=== PATIENT | female | born 1960 | race Caucasian/White ===

== ENCOUNTER 2016-09-04 09:17 | Inpatient (IN) ==
[2016-09-04] MEDS ORDERED: *HR* Promethazine 25 MG/ML VIAL IVP PRN ×2 (10:39→17:14)
[2016-09-04] MEDS ORDERED: *HR* Metoprolol 5 MG/5 ML VIAL IVP PRN (10:39)
[2016-09-04] MEDS ORDERED: Naloxone 0.4 MG/ML INJ IVP PRN (10:39)
[2016-09-04] MEDS ORDERED: Ondansetron 4 MG/2 ML VIAL IVP PRN (10:39)
[2016-09-04] MEDS ORDERED: 0.9 % Sodium Chloride 1,000 ML IVC SCH ×2 (10:45→22:03)
[2016-09-04] MEDS ORDERED: *HR* LORazepam 2 MG/ML VIAL IVP PRN (10:45)
[2016-09-04] MEDS ORDERED: Pantoprazole 40 MG VIAL IVP SCH (10:45)
[2016-09-04 11:05] LABS: Hematocrit 39.3 % (35.3-44.9); Hemoglobin 12.9 g/dL (11.5-15.4); Mean Corpuscular HGB Conc 32.8 g/dL (31.6-35.5); Mean Corpuscular Hemoglobin 30.7 pg (28.0-33.3); Mean Corpuscular Volume 93.6 fL (83.0-100.0); Platelet Count 201 K/mcL (140-400); Red Cell Distribution Width 12.6 % (11.5-14.5); Segmented Neutrophils % 54.9 %
[2016-09-04 11:06] LABS: Basophils % 0.4 %; Eosinophils # 0.2 K/mcL (0.0-0.6); Eosinophils % 3.5 %; Immature Granulocytes % 0.4 % (0-4); Lymphocytes # 1.5 K/mcL (0.6-4.6); Lymphocytes % 31.7 %; Monocytes # 0.4 K/mcL (0.0-1.3); Monocytes % 9.1 %; Neutrophils # 2.5 K/mcL (1.6-8.9)
[2016-09-04 11:11] LABS: Prothrombin Time 11.3 Seconds (9.4-12.1)
[2016-09-04 11:16] LABS: BUN/Creatinine Ratio 10 (6-26); Blood Urea Nitrogen 10 mg/dL (7-20); Calcium 8.8 mg/dL (8.6-10.8); Carbon Dioxide 27 mEq/L (19-29); Chloride 106 mEq/L (98-109); Glucose 95 mg/dL (70-99); Magnesium 1.9 mg/dL (1.6-2.6); Osmolality,Calculated 293 (280-300); Phosphorous 2.2 mg/dL (2.3-4.7); Potassium 3.5 mEq/L (3.5-4.5); Sodium 142 mEq/L (136-145); eGFR For African Americans > 60 (> 60); eGFR For Non-African Americans 59 (> 60)
[2016-09-04] MEDS ORDERED: *HR* Propofol 200 MG/20 ML VIAL IVP ONE (13:47)
[2016-09-04] MEDS ORDERED: *HR* Midazolam HCl 2 MG/2 ML VIAL ONE (13:47)
[2016-09-04] MEDS ORDERED: *HR* FentaNYL (PF) 100 MCG/2 ML VIAL ONE ×3 (13:47→19:17)
[2016-09-04] MEDS ORDERED: Lidocaine -MPF 4% 5 ML AMPUL ONE (13:47)
[2016-09-04] MEDS ORDERED: *HR* Succinylcholine 200 MG/10 ML VIAL IVP ONE (13:47)
[2016-09-04] MEDS ORDERED: Lidocaine -MPF 2% 2 ML VIAL ONE (13:47)
[2016-09-04] MEDS ORDERED: *HR* Rocuronium Bromide 50 MG/5 ML VIAL ONE ×2 (13:47→17:54)
--- NOTE | 2016-09-04 14:25 | Anesthesia Evaluation PreOp ---
Date of Encounter: 09/04/16 Time of Encounter: 14:23 - Past History Planned Operation: Colorectal Anastamosis Revision Cardiac History: HTN, Hyperlipidemia Other Medical History: Thyroid (Hypothyroid), Other (Colon CA, Breast CA) Anesthesia History: Past Anesthesia (Bowel Resection, Colostomy with reversal, C6-7 Fusion, B. CTR, GB,Colonoscopy), Problems (PONV) : No Alcohol Use: none Drug use: none Medications and Allergies Gabapentin [Neurontin] 800 mg PO TID #90 tablet 04/18/16 [Rx] Levothyroxine [Synthroid] 50 mcg PO DAILY 07/23/16 [History] Acetaminophen [Non-Aspirin] 500 mg PO BID 08/29/16 [History] Aspirin [Lo-Dose Aspirin EC] 81 mg PO DAILY 08/29/16 [History] Tamoxifen [Nolvadex] 10 mg PO DAILY 08/29/16 [History] Turmeric Root Extract [Turmeric] 500 mg PO BID 08/29/16 [History] Calcium Carbonate/Vitamin D3 [Calcium 500 + D Tablet] 1 tab PO BID 09/04/16 [ History] Allergies latex Adverse Reaction (Verified 08/29/16 08:12) See Comments Tested Negative - Meds/Allergy Pre-op Review Medications Reviewed: Yes Allergies Reviewed: Yes Beta Blockers on Current Med List: Yes Anesthesia Results - Labs 09/04/16 10:58 09/04/16 10:58 - Imaging EKG: image reviewed ( [facility] [place]) Anesthesia Exam O2 Sat Height 1.68 m Weight 135.7 kg O2 Sat by Pulse Oximetry 98 Vital Signs Temp Pulse Resp BP Pulse Ox 98.0 F 66 18 134/92 98 09/04/16 11:29 09/04/16 11:29 09/04/16 11:29 09/04/16 11:29 09/04/16 11:29 Vital Signs/O2 Sat, Most Current Temp Pulse Resp BP Pulse Ox 98.0 F 66 18 134/92 98 09/04/16 11:29 09/04/16 11:29 09/04/16 11:29 09/04/16 11:29 09/04/16 11:29 Height: 5'6'' Weight: 299# NPO (# of Hours): > 8 hrs Pain Scale: 0 Pain Scale Used: Numeric (1 - 10) - HEENT Pupil (Motor): Pupils equal, EOMI Mallampati: III Teeth: Normal Oral Opening: Greater than 3 - MARINE ELECTRICIAN APPRENTICE LOC: Oriented MARINE ELECTRICIAN APPRENTICE Motor: Normal RUE, Normal LUE, Normal RLE, Normal LLE, Normal Face MARINE ELECTRICIAN APPRENTICE Sensory: Normal: RUE, LUE, RLE, LLE, Face - Cardiac Rhythm: Regular Murmur: None JVD: No Carotid Bruit: No - Pulmonary Breath Sounds: bilateral Clear Respiratory Effort: Symmetrical Anesthesia Assess/Plan ASA Score: 3 Modified Lynden Scale for Level of Consciousness: Cooperative, oriented, and tranquil Anesthetic Plan: General Autologous Blood: Yes Monitoring Plan: Standard Monitors Recovery Plan: PACU
[2016-09-04] MEDS ORDERED: Lacri-Lube 3.5 GM TUBE ONE (15:33)
[2016-09-04] MEDS ORDERED: Lidocaine -MPF 1% 5 ML AMPUL INFILT ONE (15:35)
[2016-09-04] MEDS ORDERED: CefOXitin 2,000 MG VIAL IVPB ONE (15:37)
[2016-09-04] MEDS ORDERED: *HR* HYDROmorphone (PF) 1 MG/ML SYRINGE IVP PRN (17:14)
[2016-09-04] MEDS ORDERED: Ondansetron 4 MG/2 ML VIAL IVP ONE (17:14)
[2016-09-04] MEDS ORDERED: *HR* Labetalol 100 MG/20 ML MDV IVP PRN (17:14)
[2016-09-04] MEDS ORDERED: Ringers Solution, Lactated 1,000 ML IVC SCH (17:15)
[2016-09-04] MEDS ORDERED: Dexamethasone 4 MG/ML VIAL ONE (17:16)
[2016-09-04] MEDS ORDERED: *HR* Metoprolol 5 MG/5 ML VIAL IVP ONE (17:18)
[2016-09-04] MEDS ORDERED: CefOXitin 1,000 MG VIAL ONE (19:07)
[2016-09-04] MEDS ORDERED: *HR* HYDROmorphone 2 MG/ML SYRINGE ONE (20:18)
[2016-09-04] MEDS ORDERED: Neostigmine Methylsulfate 3 MG/3 ML SYRINGE ONE ×2 (20:51→21:02)
--- NOTE | 2016-09-04 22:15 | Operative Note ---
Date of procedure: 09/04/16 Pre-op diagnosis: colorectal anastomotic stricture, ventral incisional hernia x2 Post-op diagnosis: same (and bilateral hydrosalpinx, adhesions) Procedure: Lysis of adhesions for over 2 hrs, small bowel resection, bilateral salpingectomy, resection colorectal anastomosis with creation new colorectal anastomatosis and diverting loop ileostomy, primary repair ventral incisional hernias x 2, rigid sigmoidoscopy specimens: left/right fallopian tubes, proximal rectal stump/Left colon, anastomotic rings, small bowel Complications: none immediate Anesthesia: BLACKA Surgeon: Bela Saha Furnace Caretaker: Lisa Crawford Estimated blood loss (cc): 150 IV fluids (cc): 4,000 Urine output (cc): 400 Specimen: see op note Condition: stable Disposition: PACU Procedure in Detail: specimens: anastomotic stricture (left colon/proximal rectum), anastomotic rings , small bowel, left/right fallopian tubes Patient was brought into the operating suite and placed supine on the operating table. Sign in was performed and everyone was in agreement. Anesthesia was induced and patient was endotracheally intubated by anesthesia without incident. A ngt was placed by anesthesia and a muñoz placed by the circulating nurse. The patient was placed in lithotomy position in yellow fin stirrups. Her abdomen and perineum and buttocks were prepped and draped in the usual sterile fashion. Time out was performed and again everyone in agreement. A long midline incision was made excising her previous midline scar with a 15 blade and a bovie. Dissection through the subcutaneous tissue to the fascia was made with the bovie. Kocker's were placed on either side of the fascia for retraction and the abdomen entered with the bovie through one of the ventral incisional hernia sites. The fascia incision was elongated. A bookwalter was placed for retraction. Adhesions of the small bowel to the small bowel and to the abdominal wall were taken down sharply with Metzenbaum scissors. The colorectal anastomosis was located and was densely adherent to the left lateral abdominal wall and five loops of small bowel were pulled into and densely adherent to this area as well as adhesed to the dome of the uterus. Lysis of adhesions and take down of the small bowel loops from the strictured anastomosis took 2 hours. There was an enterotomy of one of the adhesed loops of small bowel which is not an uncexpected event given the difficulty encountered with the adhesions. The enterotomy was closed with a 2-0 silk running stitch. The proximal left colon from the rectum at the anastomosis/stricture and a noncrushing bowel clamp was placed across the proximal left colon and a stacey at the rectum. The abdomen was irrigated with sterile saline. The small bowel was run from the ligament of trietz to the terminal ileum, no other areas of small bowel injury were identified. A rigid sigmoidscopy was done to evaluate strictured area but due to liquid stool and length of rectum was unable to be visualized. The area of closed small bowel enterotomy was resected using two linear FLIP staplers with blue loads and the impact Ligasure to dissect the small bowel off the mesentary. The small bowel resected measured 23 cm in lenght. A side to side small bowel anastomosis was constructed with the linear FLIP stapler using a blue load to create the common channel and a TL 60 stapler to close the end. The end was reinforced with 3-0 silk Lembert stitches and a 3-0 crotch stitch was placed. The mesentary was closed with a 3-0 silk running stitch. The abdomen was irrigated with sterile saline. Patients bilateral fallopian tubes were very large and dilated, ovaries looked normal. The bilateral fallopian tubes were resected with the impact Ligasure. The proximal rectum was dissected free the bovie and green Contour stapler was used to transect the proximal rectum/strictured area. There was bleeding from the transected stump which was stopped with the bovie. The splenic flexure was previously taken down. Omentum was taken off the distal transverse colon with the bovie which allowed the left colon to reach into the pelvis, rectal stump. A disposable pursestring stapling device was applied to the distal left colon which was dilated. A 29 EEA stapler was chosen for the colorectal anastomosis and the anvil placed in the left colon and tied in place. 29 mm dilator was placed through the anus into the rectum. The EEA stapling device was placed in the rectum and the anastomosis constructed. Once the stapler was removed it was obvious there was a hole in the anastomosis at the right anterior area. This was closed with 3-0 silk full thickness interrupted stitches. Epiploica fat was buttressed around the anterior aspect of the anastomosis with 3-0 silk interrupted stitches. The pelvis was filled with sterile saline. A muñoz catheter with a saline filled 30cc balloon was placed in the anus. A noncrushing bowel clamp was placed across the left colon and 270cc air instilled in the rectum/distal colon, there was no evident leak. The abdomen was irrigated with sterile saline. A long pedicle of omentum was placed over thecolorectal anastomsis into the pelvis. A 10 mm GOVIND drain was placed in pelvis anterior to the anastomosis/omentum through an opening in the left lower quadrant abdominal wall and was secured to the skin with a 2-0 silk stitch. A site at the skin above the right upper abdomen lateral rectus muscle was chosen to create the diverting loop ileostomy where the small bowel, a little over a foot from the terminal ileum, appeared to reach well. A circular incision through the skin was made with a 15 blade and the skin and subcutaneous tissue dissected out with the bovie. A cruciate incision was made in the anterior rectus fascia and the rectus muscle fibers split in the direction of the fibers and an opening in the posterior rectus fascia was made with the bovie. The small bowel loop was pulled through the abdominal wall with a stacey. Due to patients obesity the small bowel did not have a lot of slack past the skin, ~ 3- 4 cm only. The small bowel mesentary was scored in three areas with the bovie trying to gain a little additional length. An opening beneath the small bowel with made with a bovie and a red rubber catheter placed below the small bowel. The red rubber catheter was trimmed and sutured to the skin with 2-0 stitches. Kockers were placed on either side of the fascia for retraction. The ngt was palpated to be in good position. Five pieces of seprafilm were placed in the abdomen. Lap and soft counts were correct. The hernia sacs were dissected and excised from the subcutaneous tissue at the previous two ventral incisional hernia sites, with the bovie. The midline fascia was closed with two seperate # 1 nonlooped PDS running stitches meeting in the middle. The subcutaneous tissue was copiously irrigated with sterile saline. The subcutaneous tissue was reapproximated with 3-0 vicryl interrupted stitches. The skin was closed with von. Attention was turned toward constructing the loop ileostomy. Approximately 2/3 of the anterior distal small bowel was opened transversely with the bovie. The small bowel was sutured to the subcutaneous tissue with full bowel thickness interrupted 3-0 vicryl stitches. The proximal small bowel was everted creating the ileostomy and was secured with 3-0 vicryl stitches. An ostomy appliance faceplate was trimmed to accomodate the ileostomy and red rubber catheter, and was applied. Sterile 4x4 gauze and medipore tape were placed as the midline incision dressing. A drain sponge was placed at the GOVIND drain site. An abdominal binder was applied. The patient tolerated the procedure well and all lap and instrument counts were correct at the end of the case. She was extubated in the OR by anesthesia without incident. The muñoz and ngt remained. She was taken to pacu in stable condition.
--- NOTE | 2016-09-04 23:53 | Anesthesia Evaluation Post Op ---
Date of Encounter: 09/04/16 Time of Encounter: 23:53 - Vital Signs Vital Signs: Last Vital Signs Temp 98.4 F 09/04/16 23:12 Pulse 113 09/04/16 23:32 Resp 16 09/04/16 23:32 BP 155/113 09/04/16 23:32 Pulse Ox 99 09/04/16 23:32 - Lungs Lungs: Clear Ascult./Percussion - Airway Airway: Non-obstructed - Cardiovascular Regular Rate - Mental Status Mental Status: Alert & Oriented, Answers Appropriately - Pain Pain Scale: 3 - Nausea Vomiting Nausea Vomiting: Not Present - Hydration Hydration: NPO, Moser catheter Notes: 09/04/16 23:53 on CPAP - Discharge PostOp Status: Transfer Patient to floor
[2016-09-05] MEDS ORDERED: Ringers Solution, Lactated 500 ML IVC ONE (02:29)
[2016-09-05] MEDS ORDERED: *HR* Promethazine 25 MG/ML VIAL IVP PRN (03:29)
[2016-09-05] MEDS ORDERED: *HR* Metoprolol 5 MG/5 ML VIAL IVP PRN (03:29)
[2016-09-05] MEDS ORDERED: *HR* LORazepam 2 MG/ML VIAL IVP PRN (03:29)
[2016-09-05] MEDS ORDERED: Naloxone 0.4 MG/ML INJ IVP PRN (03:29)
[2016-09-05] MEDS ORDERED: Ondansetron 4 MG/2 ML VIAL IVP PRN (03:29)
[2016-09-05] MEDS ORDERED: *HR* HYDROmorphone 20 MG/20 ML PCA IVC PRN (03:29)
[2016-09-05] MEDS: 0.9 % Sodium Chloride 1,000 ML IVC SCH ×4 (04:20→22:48)
[2016-09-05] MEDS: Piperacillin/Tazobactam 3.375 GM in D5% in Water (Mini-Bag+) 100 ML IVPB SCH ×3 (04:51→21:34)
[2016-09-05] MEDS: Pantoprazole 40 MG VIAL IVP SCH (06:14)
[2016-09-05] MEDS: Levothyroxine Sodium 100 MCG VIAL IVP SCH (06:14)
[2016-09-05 06:53] LABS: Hematocrit 42.1 % (35.3-44.9); Hemoglobin 13.6 g/dL (11.5-15.4); Lymphocytes # 0.6 K/mcL (0.6-4.6); Mean Corpuscular HGB Conc 32.3 g/dL (31.6-35.5); Mean Corpuscular Hemoglobin 31.4 pg (28.0-33.3); Mean Corpuscular Volume 97.2 fL (83.0-100.0); Mean Platelet Volume 10.6 fL (9.4-12.4); Platelet Count 174 K/mcL (140-400); Red Blood Count 4.33 M/mcL (3.82-4.97); Red Cell Distribution Width 13.1 % (11.5-14.5)
[2016-09-05 07:09] LABS: BUN/Creatinine Ratio 10 (6-26); Blood Urea Nitrogen 10 mg/dL (7-20); Calcium 7.7 mg/dL (8.6-10.8); Carbon Dioxide 26 mEq/L (19-29); Chloride 107 mEq/L (98-109); Glucose 157 mg/dL (70-99); Magnesium 1.4 mg/dL (1.6-2.6); Osmolality,Calculated 290 (280-300); Potassium 3.9 mEq/L (3.5-4.5); Sodium 139 mEq/L (136-145); eGFR For African Americans > 60 (> 60); eGFR For Non-African Americans 59 (> 60)
[2016-09-05 07:42] LABS: Monocytes # 0.2 K/mcL (0.0-1.3); Neutrophils # 9.4 K/mcL (1.6-8.9)
[2016-09-05 07:44] LABS: Platelet Estimate Normal (Normal)
[2016-09-05] MEDS ORDERED: Magnesium Sulfate 2 GM in D5% in Water 100 ML IVPB ONE (08:01)
[2016-09-05] MEDS ORDERED: 0.9 % Sodium Chloride 1,000 ML IVC ONE (08:12)
--- NOTE | 2016-09-05 10:44 | General Surgery Progress Note ---
Date of Encounter: 09/05/16 Time of Encounter: 12:40 - Assessment and Plan (1) Colonic stricture Current Visit: Yes Status: Acute POD #1 from a Lysis of adhesions for over 2 hrs, small bowel resection, bilateral salpingectomy, resection colorectal anastomosis with creation new colorectal anastomatosis and diverting loop ileostomy, primary repair ventral incisional hernias x [address] Saha NPO with NG tube to LIWS Await return of bowel function IV fluids- 130ml/hour, bolused 1 L NS Supportive care/pain control- Dilaudid BRIMMING MACHINE OPERATOR Muñoz catheter to SD for strict I&Os IS every 1 hour while awake PPI therapy daily Out of bed to chair today Repeat am labs (2) Essential hypertension Current Visit: No Status: Chronic Stable Continue metoprolol prn Will monitor and adjust as necessary (3) Hyperglycemia Current Visit: Yes Status: Acute Add low sliding scale insulin every 6 hours Will monitor and adjust as necessary (4) CKD (chronic kidney disease), stage II Current Visit: No Status: Chronic Stable IV fluids Muñoz cath to SD with strict I&Os Avoid nephrotoxic medications Repeat am labs (5) Morbid obesity with BMI of 45.0-49.9, adult Current Visit: Yes Status: Chronic (6) Hypomagnesemia Current Visit: Yes Status: Acute Replace Mg Repeat am labs (7) DVT prophylaxis Current Visit: No Status: Acute EPCDs to bilateral lower extremities Start heparin this evening Out of bed to chair today Subjective Patient reports: no flatus, no bowel movement, afebrile, other (Patient resting in bed comfortably with no complaints; lethargic) Narrative: denies pain, little nausea in the am none currently no flatus or bm no complaints Objective Vital Signs - Last 8 Hours Temp Pulse Resp BP Pulse Ox 09/05/16 08:02 97.7 F 116 18 130/89 98 09/05/16 03:15 98.5 F 118 22 134/89 Intake and Output 09/04/16 09/05/16 09/05/16 23:59 07:59 15:59 Intake Total 0 / 0 0 / 0 Output Total 375 / 375 315 / 315 Balance 0 / 0 -375 / -375 -315 / -315 Intake: Oral 0 / 0 0 / 0 Output: Catheter 235 / 235 65 / 65 Gastric Drainage 0 / 0 200 / 200 Wound Drainage 140 / 140 50 / 50 Left Upper Abdomen 140 / 140 50 / 50 Other: Meal Dinner NPO for breakfast Percent of Meal Consumed 0% Blood Glucose* 172 - General physical appearance well developed, no distress, obese - Eyes normal ocular movement - ENT normal mucosa, atraumatic, normocephalic - Neck Neck exam: trachea midline - Respiratory normal respiratory effort, clear to auscultation, other (diminished bibasilar bases) - Cardiovascular Cardiovascular exam: Present: tachycardia - Abdomen Abdomen: Present: soft, tender (expected post-operative tenderness), wound (GOVIND drain to bulb suction with serousang. drainage noted (190ml noted since surgery) ; NG tube to LIWS with bilious drainage noted (200ml since surgery); ileostomy pink and moist with serousang. drainage noted) - Incision Incision: Present: clean and dry, intact - Genitourinary other (muñoz catheter to SD with pro yellow urine noted (300ml since surgery) ) - Integumentary no rash, no growths - Neurologic CN 2-12 grossly intact - Psychiatric oriented to person, oriented to place, speech is normal - Labs 09/06/16 04:07 09/06/16 04:07 Diabetes panel 09/04/16 09/05/16 Range/Units 10:58 05:48 Sodium 142 139 (136-145) mEq/L Potassium 3.5 3.9 (3.5-4.5) mEq/L Chloride 106 107 (98-109) mEq/L Carbon Dioxide 27 26 (19-29) mEq/L BUN 10 10 (7-20) mg/dL Creatinine 0.98 0.98 (0.57-1.11) mg/dL Glucose 95 157 H (70-99) mg/dL Calcium 8.8 7.7 L (8.6-10.8) mg/dL Calcium panel 09/04/16 09/05/16 Range/Units 10:58 05:48 Calcium 8.8 7.7 L (8.6-10.8) mg/dL Phosphorus 2.2 L 4.0 D (2.3-4.7) mg/dL Pituitary panel 09/04/16 09/05/16 Range/Units 10:58 05:48 Sodium 142 139 (136-145) mEq/L Potassium 3.5 3.9 (3.5-4.5) mEq/L Chloride 106 107 (98-109) mEq/L Carbon Dioxide 27 26 (19-29) mEq/L BUN 10 10 (7-20) mg/dL Creatinine 0.98 0.98 (0.57-1.11) mg/dL Glucose 95 157 H (70-99) mg/dL Calcium 8.8 7.7 L (8.6-10.8) mg/dL Adrenal panel 09/04/16 09/05/16 Range/Units 10:58 05:48 Sodium 142 139 (136-145) mEq/L Potassium 3.5 3.9 (3.5-4.5) mEq/L Chloride 106 107 (98-109) mEq/L Carbon Dioxide 27 26 (19-29) mEq/L BUN 10 10 (7-20) mg/dL Creatinine 0.98 0.98 (0.57-1.11) mg/dL Glucose 95 157 H (70-99) mg/dL Calcium 8.8 7.7 L (8.6-10.8) mg/dL - VTE Documentation of Mechanical Device: Intermittent pneumatic compression device Consult Discharge Plan - Plan Referrals: Koby Hubbard DO [Primary Care Provider] - - Attending Attestation I examined this patient and my medical decision-making was reviewed with the CUSTOM SKI MAKER/PA/Advanced Practice Nurse/Resident Physician. I agree with the documented findings, disposition and treatment plan as described except to the extent set forth below. I examined this patient and my medical decision-making was reviewed with the CUSTOM SKI MAKER/PA/Advanced Practice Nurse/Resident Physician. I agree with the documented findings, disposition and treatment plan as described except to the extent set forth below.
[2016-09-05] MEDS ORDERED: *HR* Dextrose 50 % in Water (Syg) 50 ML SYRINGE IVP PRN (10:52)
[2016-09-05] MEDS ORDERED: D5% in Water 1,000 ML IVC PRN (10:52)
[2016-09-05] MEDS ORDERED: Dextrose Gel 15 GM PO PRN ×2 (10:52)
[2016-09-05] MEDS: Insulin LISPRO 300 UNITS/3 ML VIAL SQ SCH ×2 (15:24→21:09)
[2016-09-05] MEDS: *HR* Heparin 5,000 UNIT/ML VIAL SQ SCH (21:36)
[2016-09-06] MEDS: Insulin LISPRO 300 UNITS/3 ML VIAL SQ SCH ×4 (00:15→21:23)
[2016-09-06] MEDS: Piperacillin/Tazobactam 3.375 GM in D5% in Water (Mini-Bag+) 100 ML IVPB SCH ×3 (05:06→20:06)
[2016-09-06 05:16] LABS: Mean Corpuscular HGB Conc 31.6 g/dL (31.6-35.5); Mean Corpuscular Hemoglobin 31.8 pg (28.0-33.3); Mean Corpuscular Volume 100.8 fL (83.0-100.0); Mean Platelet Volume 10.5 fL (9.4-12.4); Platelet Count 144 K/mcL (140-400); Red Blood Count 3.77 M/mcL (3.82-4.97); Red Cell Distribution Width 13.5 % (11.5-14.5)
[2016-09-06 05:28] LABS: BUN/Creatinine Ratio 11 (6-26); Blood Urea Nitrogen 11 mg/dL (7-20); Calcium 7.4 mg/dL (8.6-10.8); Carbon Dioxide 26 mEq/L (19-29); Chloride 110 mEq/L (98-109); Glucose 121 mg/dL (70-99); Magnesium 1.5 mg/dL (1.6-2.6); Osmolality,Calculated 297 (280-300); Phosphorous 2.7 mg/dL (2.3-4.7); Potassium 4.2 mEq/L (3.5-4.5); Sodium 143 mEq/L (136-145); eGFR For African Americans > 60 (> 60); eGFR For Non-African Americans 57 (> 60)
[2016-09-06] MEDS: *HR* Heparin 5,000 UNIT/ML VIAL SQ SCH ×2 (05:39→17:28)
[2016-09-06] MEDS: Pantoprazole 40 MG VIAL IVP SCH (05:40)
[2016-09-06] MEDS: Levothyroxine Sodium 100 MCG VIAL IVP SCH (05:40)
[2016-09-06 06:19] LABS: Monocytes # 0.6 K/mcL (0.0-1.3); Neutrophils # 8.1 K/mcL (1.6-8.9)
[2016-09-06 06:20] LABS: Platelet Estimate Normal (Normal)
[2016-09-06] MEDS: 0.9 % Sodium Chloride 1,000 ML IVC SCH ×2 (07:09→17:28)
[2016-09-06] MEDS ORDERED: Magnesium Sulfate 2 GM in D5% in Water 100 ML IVPB ONE (10:13)
[2016-09-06] MEDS ORDERED: Acetaminophen IV 1,000 MG/100 ML INFUS..BTL IVPB ONE ×3 (10:15→19:45)
[2016-09-06] MEDS ORDERED: *HR* Morphine 2 MG/ML SYRINGE IVP PRN (10:20)
[2016-09-06] MEDS ORDERED: *HR* HYDROmorphone 20 MG/20 ML PCA IVC PRN (12:50)
--- NOTE | 2016-09-06 16:36 | General Surgery Progress Note ---
Date of Encounter: 09/06/16 Time of Encounter: 12:30 - Assessment and Plan (1) Colonic stricture Current Visit: Yes Status: Acute POD #2 from a Lysis of adhesions for over 2 hrs, small bowel resection, bilateral salpingectomy, resection colorectal anastomosis with creation new colorectal anastomatosis and diverting loop ileostomy, primary repair ventral incisional hernias x [address] 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 Gordon) Ofirmev every 6 hours Muñoz catheter to SD for strict I&Os IS every 1 hour while awake PPI therapy daily Out of bed to chair today Repeat am labs (2) Essential hypertension Current Visit: No Status: Chronic Stable Continue metoprolol prn Will monitor and adjust as necessary (3) Hyperglycemia Current Visit: Yes Status: Acute Improved Continue low sliding scale insulin every 6 hours Will monitor and adjust as necessary (4) CKD (chronic kidney disease), stage II Current Visit: No Status: Chronic Stable IV fluids- 110ml/hour Muñoz cath to SD with strict I&Os Avoid nephrotoxic medications Repeat am labs (5) Morbid obesity with BMI of 45.0-49.9, adult Current Visit: Yes Status: Chronic (6) Hypomagnesemia Current Visit: Yes Status: Acute Replace Mg per Dr. Saha Repeat am labs (7) DVT prophylaxis Current Visit: No Status: Acute EPCDs to bilateral lower extremities Heparin 5,000 units SQ twice daily for DVT prophylaxis Out of bed to chair today (8) Acute confusion Current Visit: Yes Status: Acute CT of head ordered per Dr. Gordon Subjective Patient reports: no new complaints, still having pain (surgical), no flatus, no bowel movement, afebrile, other (Patient is pleasantly confused. Awake and alert , oriented to person only. She does know that she is in a hospital but unable to say which hospital or what city she is in.) Objective Vital Signs - Last 8 Hours Temp Pulse Resp BP Pulse Ox 09/06/16 14:48 99.7 F H 94 18 121/80 97 09/06/16 11:58 98 09/06/16 10:50 98.2 F 96 20 141/82 98 09/06/16 09:45 97.5 F L 90 16 127/81 98 09/06/16 09:15 98.2 F 16 135/82 98 Intake and Output 09/06/16 09/06/16 09/06/16 07:59 15:59 23:59 Intake Total 1100 / 1100 304 / 304 Output Total 535 / 535 750 / 750 Balance 565 / 565 -446 / -446 Intake: IV Fluids 1100 / 1100 304 / 304 0.9 % Sodium Chloride 1, 1000 / 1000 000 ML @ 135 mls/hr IVC . [id number] [facility] Rx#:[id number] Ofirmev 1,000 mg In 100 100 / 100 ml @ 400 mls/hr IVPB ONCE ONE Rx#:[id number] Zosyn 3.375 GM In 100 / 100 100 / 100 Dextrose 5% (Minibag+) 100 ML 100 ML @ 25 mls/hr IVPB Q8H [facility] Rx#: [id number] Oral 0 / 0 0 / 0 Output: Stool 0 / 0 100 / 100 Catheter 480 / 480 450 / 450 Gastric Drainage 0 / 0 175 / 175 Right Nare 175 / 175 Wound Drainage 55 / 55 25 / 25 Left Upper Abdomen 55 / 55 25 / 25 Other: Meal NPO Blood Glucose* 121 117 - General physical appearance well developed, well nourished, no distress, obese - Eyes normal ocular movement - ENT dry mucosa, atraumatic, normocephalic - Neck Neck exam: trachea midline - Respiratory normal respiratory effort, clear to auscultation, other (Diminished bibasilar bases. IS- 500-1000ml) - Cardiovascular Cardiovascular exam: Present: RRR (HR improved) - Abdomen Abdomen: Present: soft, tender (Expected postoperative tenderness), wound (GOVIND drain to bulb suction with serousang. drainage noted (80ml since midnight); NG tube to LIWS with bilious drainage noted (175ml noted since midnight)) - Incision Incision: Present: clean and dry, intact - Genitourinary other (muñoz catheter to SD with clear, yellow urine noted (930ml noted since midnight)- improved) - Neurologic CN 2-12 grossly intact - Psychiatric oriented to person - Labs 09/06/16 04:07 09/06/16 04:07 Diabetes panel 09/06/16 Range/Units 04:07 Sodium 143 (136-145) mEq/L Potassium 4.2 (3.5-4.5) mEq/L Chloride 110 H (98-109) mEq/L Carbon Dioxide 26 (19-29) mEq/L BUN 11 (7-20) mg/dL Creatinine 1.01 (0.57-1.11) mg/dL Glucose 121 H (70-99) mg/dL Calcium 7.4 L (8.6-10.8) mg/dL Calcium panel 09/06/16 Range/Units 04:07 Calcium 7.4 L (8.6-10.8) mg/dL Phosphorus 2.7 (2.3-4.7) mg/dL Pituitary panel 09/06/16 Range/Units 04:07 Sodium 143 (136-145) mEq/L Potassium 4.2 (3.5-4.5) mEq/L Chloride 110 H (98-109) mEq/L Carbon Dioxide 26 (19-29) mEq/L BUN 11 (7-20) mg/dL Creatinine 1.01 (0.57-1.11) mg/dL Glucose 121 H (70-99) mg/dL Calcium 7.4 L (8.6-10.8) mg/dL Adrenal panel 09/06/16 Range/Units 04:07 Sodium 143 (136-145) mEq/L Potassium 4.2 (3.5-4.5) mEq/L Chloride 110 H (98-109) mEq/L Carbon Dioxide 26 (19-29) mEq/L BUN 11 (7-20) mg/dL Creatinine 1.01 (0.57-1.11) mg/dL Glucose 121 H (70-99) mg/dL Calcium 7.4 L (8.6-10.8) mg/dL - Imaging Additional Studies: Head CT 09/06/16 13:30 IMPRESSION: No acute intracranial abnormality. D/ / Gianna Pardo MD / Gianna Pardo MD Interpreting Provider: Gianna Pardo MD - VTE Documentation of Mechanical Device: Intermittent pneumatic compression device Consult Discharge Plan - Plan Referrals: Koby Hubbard DO [Primary Care Provider] - - Attending Attestation I examined this patient and my medical decision-making was reviewed with the GAS WELDING MACHINE OPERATOR/PA/Advanced Practice Nurse/Resident Physician. I agree with the documented findings, disposition and treatment plan as described except to the extent set forth below.
[2016-09-07] MEDS: 0.9 % Sodium Chloride 1,000 ML IVC SCH ×3 (01:18→21:05)
[2016-09-07] MEDS: Insulin LISPRO 300 UNITS/3 ML VIAL SQ SCH ×4 (01:21→18:34)
[2016-09-07] MEDS: Piperacillin/Tazobactam 3.375 GM in D5% in Water (Mini-Bag+) 100 ML IVPB SCH ×3 (04:30→21:04)
[2016-09-07] MEDS: Pantoprazole 40 MG VIAL IVP SCH (05:42)
[2016-09-07] MEDS: *HR* Heparin 5,000 UNIT/ML VIAL SQ SCH ×2 (05:42→17:18)
[2016-09-07] MEDS: Levothyroxine Sodium 100 MCG VIAL IVP SCH (05:42)
[2016-09-07 06:44] LABS: Basophils % 0.3 %; Eosinophils # 0.1 K/mcL (0.0-0.6); Eosinophils % 1.4 %; Hematocrit 30.4 % (35.3-44.9); Immature Granulocytes % 0.6 % (0-4); Immature Platelets 5.7 % (1.1-6.1); Lymphocytes # 0.7 K/mcL (0.6-4.6); Lymphocytes % 9.8 %; Mean Corpuscular HGB Conc 32.2 g/dL (31.6-35.5); Mean Corpuscular Hemoglobin 31.6 pg (28.0-33.3); Mean Corpuscular Volume 98.1 fL (83.0-100.0); Mean Platelet Volume 10.9 fL (9.4-12.4); Monocytes # 0.4 K/mcL (0.0-1.3); Neutrophils # 5.9 K/mcL (1.6-8.9); Platelet Count 109 K/mcL (140-400); Red Cell Distribution Width 13.2 % (11.5-14.5); Segmented Neutrophils % 81.9 %
[2016-09-07 06:59] LABS: BUN/Creatinine Ratio 13 (6-26); Blood Urea Nitrogen 9 mg/dL (7-20); Calcium 7.4 mg/dL (8.6-10.8); Carbon Dioxide 26 mEq/L (19-29); Chloride 111 mEq/L (98-109); Glucose 100 mg/dL (70-99); Magnesium 2.1 mg/dL (1.6-2.6); Osmolality,Calculated 295 (280-300); Sodium 143 mEq/L (136-145); eGFR For African Americans > 60 (> 60); eGFR For Non-African Americans > 60 (> 60)
[2016-09-07 07:01] LABS: Phosphorous 1.3 mg/dL (2.3-4.7)
[2016-09-07 07:38] LABS: Hemoglobin 9.8 g/dL (11.5-15.4)
[2016-09-07] MEDS ORDERED: 0.9 % Sodium Chloride 1,000 ML IVC SCH (08:43)
--- NOTE | 2016-09-07 08:58 | General Surgery Progress Note ---
Date of Encounter: 09/07/16 Time of Encounter: 08:30 - Assessment and Plan (1) Colonic stricture Current Visit: Yes Status: Acute POD #3 from a Lysis of adhesions for over 2 hrs, small bowel resection, bilateral salpingectomy, resection colorectal anastomosis with creation new colorectal anastomatosis and diverting loop ileostomy, primary repair ventral incisional hernias x [address] Saha NPO with NG tube to LIWS Await return of bowel function IV fluids- 100ml/hour IV antibiotics- Zosyn Supportive care/pain control- Dilaudid SYSTEM ADMINISTRATOR (adjustments made per Dr. Gordon) Ofirmev every 6 hours D/C muñoz catheter IS every 1 hour while awake PPI therapy daily Out of bed to chair today Repeat am labs PT/OT consulted (2) Essential hypertension Current Visit: No Status: Chronic Stable Continue metoprolol prn Will monitor and adjust as necessary (3) Hyperglycemia Current Visit: Yes Status: Acute Improved Continue low sliding scale insulin every 6 hours Will monitor and adjust as necessary (4) CKD (chronic kidney disease), stage II Current Visit: No Status: Chronic Stable IV fluids- 100ml/hour Remove muñoz catheter today Avoid nephrotoxic medications Repeat am labs (5) Morbid obesity with BMI of 45.0-49.9, adult Current Visit: Yes Status: Chronic (6) Hypomagnesemia Current Visit: Yes Status: Resolved Repeat am labs (7) Acute confusion Current Visit: Yes Status: Acute CT of head with no acute abnormality Slight improvement today (8) DVT prophylaxis Current Visit: No Status: Acute EPCDs to bilateral lower extremities Heparin 5,000 units SQ twice daily for DVT prophylaxis Out of bed to chair today Subjective Patient reports: no new complaints, feels better, flatus (minimal), bowel movement (small amount of liquid stool in ileostomy bag), afebrile Objective Vital Signs - Last 8 Hours Temp Pulse Resp BP Pulse Ox 09/07/16 08:24 98.3 F 66 14 136/82 100 09/07/16 04:32 97.7 F 62 14 149/84 98 Intake and Output 09/06/16 09/07/16 09/07/16 23:59 07:59 15:59 Intake Total 200 / 200 1100 / 1100 1100 / 1100 Output Total 320 / 320 990 / 990 330 / 330 Balance -120 / -120 110 / 110 770 / 770 Intake: IV Fluids 200 / 200 1100 / 1100 1100 / 1100 0.9 % Sodium Chloride 1, 1000 / 1000 1000 / 1000 000 ML @ 135 mls/hr IVC . Q7H25M [facility] Rx#:[id number] Ofirmev 1,000 mg In 100 100 / 100 ml @ 400 mls/hr IVPB ONCE ONE Rx#:[id number] Zosyn 3.375 GM In 100 / 100 100 / 100 100 / 100 Dextrose 5% (Minibag+) 100 ML 100 ML @ 25 mls/hr IVPB Q8H [facility] Rx#: [id number] Oral 0 / 0 0 / 0 Output: Urine 250 / 250 350 / 350 Stool 100 / 100 Catheter 350 / 350 300 / 300 Gastric Drainage 50 / 50 150 / 150 Wound Drainage 20 / 20 40 / 40 30 / 30 Left Upper Abdomen 20 / 20 40 / 40 30 / 30 Other: Weight 135.7 kg Blood Glucose* 106 87 Patient Weight 09/07/16 23:59 Weight 135.7 kg - General physical appearance well developed, well nourished, no distress, other (pleasantly confused and in no acute distress) - Eyes normal ocular movement - ENT normal mucosa, atraumatic, normocephalic - Neck Neck exam: trachea midline - Respiratory normal respiratory effort, clear to auscultation, other (diminished bibasilar bases) - Cardiovascular Cardiovascular exam: Present: RRR - Abdomen Abdomen: Present: soft, tender (minimal, expected post-operative tenderness), wound (GOVIND drain to bulb suction with serous drainage noted (70ml noted since midnight); NG tube to LIWS with bilious drainage noted (100ml noted since midnight); ileostomy pink and moist with small amount of liquid stool and flatus noted) - Incision Incision: Present: open (GOVIND drain to bulb suction with serous drainage noted ( 70ml noted since midnight); NG tube to LIWS with bilious drainage noted (100ml noted since midnight); ileostomy pink and moist with small amount of liquid stool and flatus noted) - Genitourinary other (muñoz catheter to SD with clear, yellow urine noted (650ml noted since midnight)) - Neurologic CN 2-12 grossly intact - Psychiatric oriented to person, oriented to place (she knows that she is in a hospital but unable to tell me which one or which city), speech is normal - Labs 09/07/16 06:29 09/07/16 06:29 Diabetes panel 09/07/16 Range/Units 06:29 Sodium 143 (136-145) mEq/L Potassium 4.0 (3.5-4.5) mEq/L Chloride 111 H (98-109) mEq/L Carbon Dioxide 26 (19-29) mEq/L BUN 9 (7-20) mg/dL Creatinine 0.70 (0.57-1.11) mg/dL Glucose 100 H (70-99) mg/dL Calcium 7.4 L (8.6-10.8) mg/dL Calcium panel 09/07/16 Range/Units 06:29 Calcium 7.4 L (8.6-10.8) mg/dL Phosphorus 1.3 L D (2.3-4.7) mg/dL Pituitary panel 09/07/16 Range/Units 06:29 Sodium 143 (136-145) mEq/L Potassium 4.0 (3.5-4.5) mEq/L Chloride 111 H (98-109) mEq/L Carbon Dioxide 26 (19-29) mEq/L BUN 9 (7-20) mg/dL Creatinine 0.70 (0.57-1.11) mg/dL Glucose 100 H (70-99) mg/dL Calcium 7.4 L (8.6-10.8) mg/dL Adrenal panel 09/07/16 Range/Units 06:29 Sodium 143 (136-145) mEq/L Potassium 4.0 (3.5-4.5) mEq/L Chloride 111 H (98-109) mEq/L Carbon Dioxide 26 (19-29) mEq/L BUN 9 (7-20) mg/dL Creatinine 0.70 (0.57-1.11) mg/dL Glucose 100 H (70-99) mg/dL Calcium 7.4 L (8.6-10.8) mg/dL - VTE Documentation of Mechanical Device: Intermittent pneumatic compression device Consult Discharge Plan - Plan Referrals: Koby Hubbard DO [Primary Care Provider] - - Attending Attestation I examined this patient and my medical decision-making was reviewed with the [employer]/PA/Advanced Practice Nurse/Resident Physician. I agree with the documented findings, disposition and treatment plan as described except to the extent set forth below.
[2016-09-07] MEDS: Ketorolac 15 MG/ML VIAL IVP SCH ×2 (13:12→17:19)
[2016-09-08] MEDS: Insulin LISPRO 300 UNITS/3 ML VIAL SQ SCH ×4 (00:28→18:04)
[2016-09-08] MEDS: Ketorolac 15 MG/ML VIAL IVP SCH ×4 (00:38→18:04)
[2016-09-08] MEDS: Piperacillin/Tazobactam 3.375 GM in D5% in Water (Mini-Bag+) 100 ML IVPB SCH ×2 (06:09→12:52)
[2016-09-08] MEDS: Pantoprazole 40 MG VIAL IVP SCH (06:10)
[2016-09-08] MEDS: Levothyroxine Sodium 100 MCG VIAL IVP SCH (06:10)
[2016-09-08] MEDS: *HR* Heparin 5,000 UNIT/ML VIAL SQ SCH ×2 (06:11→18:03)
[2016-09-08 06:44] LABS: BUN/Creatinine Ratio 18 (6-26); Blood Urea Nitrogen 12 mg/dL (7-20); Calcium 7.7 mg/dL (8.6-10.8); Carbon Dioxide 27 mEq/L (19-29); Chloride 109 mEq/L (98-109); Glucose 87 mg/dL (70-99); Magnesium 1.6 mg/dL (1.6-2.6); Osmolality,Calculated 293 (280-300); Potassium 3.2 mEq/L (3.5-4.5); Sodium 142 mEq/L (136-145); eGFR For African Americans > 60 (> 60); eGFR For Non-African Americans > 60 (> 60)
[2016-09-08 06:47] LABS: Phosphorous 0.9 mg/dL (2.3-4.7)
[2016-09-08 07:00] LABS: Basophils % 0.6 %; Eosinophils # 0.2 K/mcL (0.0-0.6); Eosinophils % 2.9 %; Hematocrit 29.8 % (35.3-44.9); Hemoglobin 9.4 g/dL (11.5-15.4); Immature Granulocytes % 0.6 % (0-4); Lymphocytes # 0.8 K/mcL (0.6-4.6); Lymphocytes % 11.6 %; Mean Corpuscular HGB Conc 31.5 g/dL (31.6-35.5); Mean Corpuscular Hemoglobin 30.7 pg (28.0-33.3); Mean Corpuscular Volume 97.4 fL (83.0-100.0); Mean Platelet Volume 10.4 fL (9.4-12.4); Monocytes # 0.4 K/mcL (0.0-1.3); Monocytes % 5.7 %; Neutrophils # 5.1 K/mcL (1.6-8.9); Platelet Count 132 K/mcL (140-400); Red Blood Count 3.06 M/mcL (3.82-4.97); Red Cell Distribution Width 12.9 % (11.5-14.5); Segmented Neutrophils % 78.6 %
[2016-09-08] MEDS ORDERED: Potassium Phosphate 44 MEQ in 0.9 % Sodium Chloride 250 ML IVPB ONE (07:17)
[2016-09-08] MEDS: 0.9 % Sodium Chloride 1,000 ML IVC SCH (07:54)
--- NOTE | 2016-09-08 09:54 | General Surgery Progress Note ---
Date of Encounter: 09/08/16 Time of Encounter: 09:52 - Assessment and Plan (1) Hypokalemia Current Visit: Yes Status: Acute Potassium level noted to be 3.2. Replaced with phos via IV. Follow BMP. (2) Hypophosphatasia Current Visit: Yes Status: Acute Phosphorus level noted to be 0.9. Replaced with 44meq Kphos. Follow Phos level in am. (3) Essential hypertension Current Visit: No Status: Chronic Stable Continue metoprolol prn Will monitor and adjust as necessary (4) DVT prophylaxis Current Visit: No Status: Acute EPCDs to bilateral lower extremities Heparin 5,000 units SQ twice daily for DVT prophylaxis Out of bed to chair today (5) Colonic stricture Current Visit: Yes Status: Acute POD #4 from a Lysis of adhesions for over 2 hrs, small bowel resection, bilateral salpingectomy, resection colorectal anastomosis with creation new colorectal anastomatosis and diverting loop ileostomy, primary repair ventral incisional hernias x [address] Saha NPO with NG [place]. Noted small amount of ostomy output and small amount of air. Will keep on gravity. IV fluids- 100ml/hour IV antibiotics- Zosyn Supportive care/pain control- continue Dilaudid Ofirmev every 6 hours IS every 1 hour while awake PPI therapy daily Out of bed to chair today Repeat am labs PT/OT consulted Subjective Patient reports: other (She denies any nausea and denies any cramping abdominal pain. Positive ambulation. ) Objective Vital Signs - Last 8 Hours Temp Pulse Resp BP Pulse Ox 09/08/16 06:43 97.6 F 100 19 145/85 95 09/08/16 03:58 98.0 F 93 15 153/76 95 Intake and Output 09/07/16 09/08/16 09/08/16 23:59 07:59 15:59 Intake Total 1100 / 1100 1100 / 1100 0 / 0 Output Total 390 / 390 1240 / 1240 300 / 300 Balance 710 / 710 -140 / -140 -300 / -300 Intake: IV Fluids 1100 / 1100 1100 / 1100 0.9 % Sodium Chloride 1, 1000 / 1000 1000 / 1000 000 ML @ 100 mls/hr IVC . Q10H [facility] Rx#:[id number] Zosyn 3.375 GM In 100 / 100 100 / 100 Dextrose 5% (Minibag+) 100 ML 100 ML @ 25 mls/hr IVPB Q8H [facility] Rx#: [id number] Oral 0 / 0 0 / 0 0 / 0 Output: Urine 300 / 300 400 / 400 300 / 300 Gastric Tube Lavage 400 / 400 Amount Right Nare 400 / 400 Gastric Drainage 400 / 400 Right Nare 400 / 400 Wound Drainage 90 / 90 40 / 40 Left Upper Abdomen 90 / 90 40 / 40 Other: Meal NPO Percent of Meal Consumed 0% # Voids 1 Weight 135.5 kg Blood Glucose* 80 89 Patient Weight 09/08/16 23:59 Weight 135.5 kg - General physical appearance well nourished, no distress - Respiratory normal expansion, normal respiratory effort - Abdomen Abdomen: Present: bowel sounds present (Scant), soft, tender (Mild incisional tenderness on palpation. ) - Labs 09/08/16 06:26 09/08/16 06:26 Diabetes panel 09/08/16 Range/Units 06:26 Sodium 142 (136-145) mEq/L Potassium 3.2 L (3.5-4.5) mEq/L Chloride 109 (98-109) mEq/L Carbon Dioxide 27 (19-29) mEq/L BUN 12 (7-20) mg/dL Creatinine 0.67 (0.57-1.11) mg/dL Glucose 87 (70-99) mg/dL Calcium 7.7 L (8.6-10.8) mg/dL Calcium panel 09/08/16 Range/Units 06:26 Calcium 7.7 L (8.6-10.8) mg/dL Phosphorus 0.9 L* (2.3-4.7) mg/dL Pituitary panel 09/08/16 Range/Units 06:26 Sodium 142 (136-145) mEq/L Potassium 3.2 L (3.5-4.5) mEq/L Chloride 109 (98-109) mEq/L Carbon Dioxide 27 (19-29) mEq/L BUN 12 (7-20) mg/dL Creatinine 0.67 (0.57-1.11) mg/dL Glucose 87 (70-99) mg/dL Calcium 7.7 L (8.6-10.8) mg/dL Adrenal panel 09/08/16 Range/Units 06:26 Sodium 142 (136-145) mEq/L Potassium 3.2 L (3.5-4.5) mEq/L Chloride 109 (98-109) mEq/L Carbon Dioxide 27 (19-29) mEq/L BUN 12 (7-20) mg/dL Creatinine 0.67 (0.57-1.11) mg/dL Glucose 87 (70-99) mg/dL Calcium 7.7 L (8.6-10.8) mg/dL - VTE Documentation of Mechanical Device: Intermittent pneumatic compression device Consult Discharge Plan - Plan Referrals: Koby Hubbard DO [Primary Care Provider] -
[2016-09-09] MEDS: Ketorolac 15 MG/ML VIAL IVP SCH ×3 (01:04→11:08)
[2016-09-09] MEDS: 0.9 % Sodium Chloride 1,000 ML IVC SCH ×3 (01:07→21:36)
[2016-09-09] MEDS: Insulin LISPRO 300 UNITS/3 ML VIAL SQ SCH ×4 (06:05→17:06)
[2016-09-09 06:10] LABS: Basophils % 0.7 %; Eosinophils % 5.5 %; Hematocrit 28.9 % (35.3-44.9); Hemoglobin 9.5 g/dL (11.5-15.4); Immature Granulocytes % 1.4 % (0-4); Lymphocytes % 22.8 %; Mean Corpuscular HGB Conc 32.9 g/dL (31.6-35.5); Mean Corpuscular Volume 94.4 fL (83.0-100.0); Mean Platelet Volume 10.5 fL (9.4-12.4); Monocytes % 9.1 %; Platelet Count 121 K/mcL (140-400); Red Blood Count 3.06 M/mcL (3.82-4.97); Red Cell Distribution Width 12.9 % (11.5-14.5); Segmented Neutrophils % 60.5 %
[2016-09-09 06:11] LABS: Eosinophils # 0.2 K/mcL (0.0-0.6); Monocytes # 0.4 K/mcL (0.0-1.3); Neutrophils # 2.5 K/mcL (1.6-8.9)
[2016-09-09 06:26] LABS: BUN/Creatinine Ratio 17 (6-26); Blood Urea Nitrogen 11 mg/dL (7-20); Calcium 7.5 mg/dL (8.6-10.8); Carbon Dioxide 24 mEq/L (19-29); Chloride 106 mEq/L (98-109); Glucose 78 mg/dL (70-99); Magnesium 1.6 mg/dL (1.6-2.6); Osmolality,Calculated 288 (280-300); Potassium 3.3 mEq/L (3.5-4.5); Sodium 140 mEq/L (136-145); eGFR For African Americans > 60 (> 60); eGFR For Non-African Americans > 60 (> 60)
[2016-09-09 06:28] LABS: Platelet Estimate Normal (Normal)
[2016-09-09 06:30] LABS: Phosphorous 1.6 mg/dL (2.3-4.7)
[2016-09-09] MEDS: Levothyroxine Sodium 100 MCG VIAL IVP SCH (06:37)
[2016-09-09] MEDS: Piperacillin/Tazobactam 3.375 GM in D5% in Water (Mini-Bag+) 100 ML IVPB SCH ×4 (06:37→21:37)
[2016-09-09] MEDS: Pantoprazole 40 MG VIAL IVP SCH (06:37)
[2016-09-09] MEDS: *HR* Heparin 5,000 UNIT/ML VIAL SQ SCH ×2 (06:38→17:05)
[2016-09-09] MEDS ORDERED: Potassium Phosphate 44 MEQ in 0.9 % Sodium Chloride 250 ML IVPB ONE (10:04)
--- NOTE | 2016-09-09 10:07 | General Surgery Progress Note ---
Date of Encounter: 09/09/16 Time of Encounter: 10:05 - Assessment and Plan (1) Hypokalemia Current Visit: Yes Status: Acute Potassium level noted to be 3.3. Replaced with phos via IV. Follow BMP. (2) Hypophosphatasia Current Visit: Yes Status: Acute Phosphorus level noted to be 1.6 (was 0.9 yesterday). Replaced with 44meq Kphos. Follow Phos level in am. (3) Essential hypertension Current Visit: No Status: Chronic Stable Continue metoprolol prn Will monitor and adjust as necessary (4) DVT prophylaxis Current Visit: No Status: Acute EPCDs to bilateral lower extremities Heparin 5,000 units SQ twice daily for DVT prophylaxis Out of bed to chair today (5) Colonic stricture Current Visit: Yes Status: Acute POD #5 from a Lysis of adhesions for over 2 hrs, small bowel resection, bilateral salpingectomy, resection colorectal anastomosis with creation new colorectal anastomatosis and diverting loop ileostomy, primary repair ventral incisional hernias x [address] Saha DC NGT. Decrease IVF to 75ml/hr. Start clears. IV antibiotics- Zosyn Supportive care/pain control- continue Dilaudid Ofirmev every 6 hours IS every 1 hour while awake PPI therapy daily Out of bed to chair today Repeat am labs PT/OT consulted Subjective Patient reports: feels better (She states that she has had multiple output from her ostomy. No nausea.) Objective Vital Signs - Last 8 Hours Temp Pulse Resp BP Pulse Ox 09/09/16 08:09 96 09/09/16 08:06 98.5 F 75 17 140/80 95 09/09/16 03:29 97.8 F 61 18 142/84 96 Intake and Output 09/08/16 09/09/16 09/09/16 23:59 07:59 15:59 Intake Total 0 / 0 1100 / 1100 0 / 0 Output Total 320 / 320 565 / 565 680 / 680 Balance -320 / -320 535 / 535 -680 / -680 Intake: IV Fluids 0 / 0 1100 / 1100 0.9 % Sodium Chloride 1, 1000 / 1000 000 ML @ 100 mls/hr IVC . Q10H [facility] Rx#:[id number] Zosyn 3.375 GM In 0 / 0 100 / 100 Dextrose 5% (Minibag+) 100 ML 100 ML @ 25 mls/hr IVPB Q8H [facility] Rx#: [id number] Oral 0 / 0 0 / 0 0 / 0 Output: Urine 250 / 250 350 / 350 500 / 500 Stool 75 / 75 0 / 0 Gastric Drainage 100 / 100 100 / 100 Wound Drainage 70 / 70 40 / 40 80 / 80 Left Upper Abdomen 70 / 70 40 / 40 80 / 80 Other: Meal NPO NPO Stool Consistency liquid Stool Characteristics Mucoid Stool Color Brown Green Weight 135.5 kg Blood Glucose* 81 80 Patient Weight 09/09/16 23:59 Weight 135.5 kg - General physical appearance well developed, well nourished, no distress - Abdomen Abdomen: Present: bowel sounds present, soft (Incision CDI. No erythema. Packing in place. No drainage. Ostomy functioning. Minimal drainage in NGT.) - Labs 09/09/16 05:58 09/09/16 05:58 Diabetes panel 09/09/16 Range/Units 05:58 Sodium 140 (136-145) mEq/L Potassium 3.3 L (3.5-4.5) mEq/L Chloride 106 (98-109) mEq/L Carbon Dioxide 24 (19-29) mEq/L BUN 11 (7-20) mg/dL Creatinine 0.63 (0.57-1.11) mg/dL Glucose 78 (70-99) mg/dL Calcium 7.5 L (8.6-10.8) mg/dL Calcium panel 09/09/16 Range/Units 05:58 Calcium 7.5 L (8.6-10.8) mg/dL Phosphorus 1.6 L D (2.3-4.7) mg/dL Pituitary panel 09/09/16 Range/Units 05:58 Sodium 140 (136-145) mEq/L Potassium 3.3 L (3.5-4.5) mEq/L Chloride 106 (98-109) mEq/L Carbon Dioxide 24 (19-29) mEq/L BUN 11 (7-20) mg/dL Creatinine 0.63 (0.57-1.11) mg/dL Glucose 78 (70-99) mg/dL Calcium 7.5 L (8.6-10.8) mg/dL Adrenal panel 09/09/16 Range/Units 05:58 Sodium 140 (136-145) mEq/L Potassium 3.3 L (3.5-4.5) mEq/L Chloride 106 (98-109) mEq/L Carbon Dioxide 24 (19-29) mEq/L BUN 11 (7-20) mg/dL Creatinine 0.63 (0.57-1.11) mg/dL Glucose 78 (70-99) mg/dL Calcium 7.5 L (8.6-10.8) mg/dL - VTE Documentation of Mechanical Device: Intermittent pneumatic compression device Consult Discharge Plan - Plan Referrals: Koby Hubbard DO [Primary Care Provider] -
[2016-09-10] MEDS: Insulin LISPRO 300 UNITS/3 ML VIAL SQ SCH ×3 (00:41→12:53)
[2016-09-10] MEDS: Piperacillin/Tazobactam 3.375 GM in D5% in Water (Mini-Bag+) 100 ML IVPB SCH ×2 (03:58→12:00)
[2016-09-10 04:18] LABS: Basophils % 0.6 %; Eosinophils # 0.2 K/mcL (0.0-0.6); Eosinophils % 5.2 %; Hematocrit 28.8 % (35.3-44.9); Hemoglobin 9.2 g/dL (11.5-15.4); Immature Granulocytes % 1.2 % (0-4); Lymphocytes # 0.7 K/mcL (0.6-4.6); Lymphocytes % 21.2 %; Mean Corpuscular HGB Conc 31.9 g/dL (31.6-35.5); Mean Corpuscular Hemoglobin 30.5 pg (28.0-33.3); Mean Corpuscular Volume 95.4 fL (83.0-100.0); Mean Platelet Volume 10.2 fL (9.4-12.4); Monocytes # 0.3 K/mcL (0.0-1.3); Monocytes % 9.2 %; Platelet Count 130 K/mcL (140-400); Red Blood Count 3.02 M/mcL (3.82-4.97); Red Cell Distribution Width 12.8 % (11.5-14.5); Segmented Neutrophils % 62.6 %
[2016-09-10 04:34] LABS: BUN/Creatinine Ratio 13 (6-26); Blood Urea Nitrogen 8 mg/dL (7-20); Calcium 7.6 mg/dL (8.6-10.8); Carbon Dioxide 27 mEq/L (19-29); Chloride 105 mEq/L (98-109); Glucose 86 mg/dL (70-99); Osmolality,Calculated 286 (280-300); Phosphorous 2.4 mg/dL (2.3-4.7); Potassium 3.2 mEq/L (3.5-4.5); Sodium 139 mEq/L (136-145); eGFR For African Americans > 60 (> 60); eGFR For Non-African Americans > 60 (> 60)
[2016-09-10] MEDS: Levothyroxine Sodium 100 MCG VIAL IVP SCH (05:28)
[2016-09-10] MEDS: *HR* Heparin 5,000 UNIT/ML VIAL SQ SCH ×2 (05:28→17:24)
[2016-09-10] MEDS: Pantoprazole 40 MG VIAL IVP SCH (05:29)
[2016-09-10] MEDS: 0.9 % Sodium Chloride 1,000 ML IVC SCH (10:04)
[2016-09-10] MEDS: *HR* OxyCODONE/APAP 5/325 TABLET PO PRN ×3 (13:14→21:25)
--- NOTE | 2016-09-10 13:55 | General Surgery Progress Note ---
Date of Encounter: 09/10/16 Time of Encounter: 13:00 - Assessment and Plan (1) Colonic stricture Current Visit: Yes Status: Acute s/p Lysis of adhesions for over 2 hrs, small bowel resection, bilateral salpingectomy, resection colorectal anastomosis with creation new colorectal anastomatosis and diverting loop ileostomy, primary repair ventral incisional hernias x 2 advance to fulls, ok to have cheeseburger tonight SLVIV Supportive care/pain control-percocet ileostomy care IS every 1 hour while awake PPI therapy daily restart home meds cipro/flagyl daily dressing changes to midline wound (2) Essential hypertension Current Visit: No Status: Chronic Stable Continue metoprolol prn restart home meds (3) Morbid obesity with BMI of 45.0-49.9, adult Current Visit: Yes Status: Chronic (4) DVT prophylaxis Current Visit: No Status: Acute EPCDs to bilateral lower extremities Start heparin this evening ambulate patient refusing rehab, will go home with (5) Hypokalemia Current Visit: Yes Status: Acute replaced Subjective Patient reports: no new complaints, feels better, still having pain, pain is less, tolerating liquids well, flatus, bowel movement, afebrile Objective Vital Signs - Last 8 Hours Temp Pulse Resp BP Pulse Ox 09/10/16 12:35 98.4 F 69 16 132/79 94 09/10/16 06:50 97.8 F 62 18 144/86 95 Intake and Output 09/09/16 09/10/16 09/10/16 23:59 07:59 15:59 Intake Total 1120 / 1120 805 / 805 645 / 645 Output Total 940 / 940 190 / 190 Balance 180 / 180 615 / 615 645 / 645 Intake: IV Fluids 1000 / 1000 805 / 805 395 / 395 0.9 % Sodium Chloride 1, 1000 / 1000 705 / 705 295 / 295 000 ML @ 75 mls/hr IVC . [id number] [facility] Rx#: [id number] Zosyn 3.375 GM In 100 / 100 100 / 100 Dextrose 5% (Minibag+) 100 ML 100 ML @ 25 mls/hr IVPB Q8H [facility] Rx#: [id number] Oral 120 / 120 0 / 0 250 / 250 Output: Urine 700 / 700 0 / 0 Stool 150 / 150 150 / 150 Wound Drainage 90 / 40 / 40 Left Upper Abdomen 90 / 40 / 40 Other: Meal Lunch Percent of Meal Consumed 75% Stool Consistency liquid Stool Characteristics [place] Stool Color Green Blood Glucose* 79 106 - General physical appearance well developed, well nourished, no distress, no pain, obese - Eyes PERRL, normal ocular movement - ENT normal mucosa, normocephalic - Respiratory normal expansion, normal respiratory effort - Cardiovascular Cardiovascular exam: Present: RRR - Abdomen Abdomen: Present: soft, tender (appropriate post op tenderness) - Incision Incision: Present: clean and dry, intact (packed at midline in three places - serous drainage) - Integumentary no rash - Neurologic CN 2-12 grossly intact - Musculoskeletal normal posture - Psychiatric oriented to time, oriented to person, oriented to place, speech is normal, memory intact - Labs 09/10/16 04:08 09/10/16 04:08 Short CBC 09/10/16 Range/Units 04:08 WBC 3.3 L (4.3-11.1) K/mcL Hgb 9.2 L (11.5-15.4) g/dL Hct 28.8 L (35.3-44.9) % Plt Count 130 L (140-400) K/mcL Neutrophils # 2.0 (1.6-8.9) K/mcL BMP 09/10/16 Range/Units 04:08 Sodium 139 (136-145) mEq/L Potassium 3.2 L (3.5-4.5) mEq/L Chloride 105 (98-109) mEq/L Carbon Dioxide 27 (19-29) mEq/L BUN 8 (7-20) mg/dL Creatinine 0.62 (0.57-1.11) mg/dL Glucose 86 (70-99) mg/dL Calcium 7.6 L (8.6-10.8) mg/dL Vital Signs Temp Pulse Resp BP Pulse Ox 09/10/16 12:35 98.4 F 69 16 132/79 94 09/10/16 06:50 97.8 F 62 18 144/86 95 09/10/16 05:09 97.6 F 56 18 142/80 95 09/09/16 23:15 97.4 F L 68 18 152/82 96 09/09/16 18:58 97.9 F 56 18 159/88 92 04/30/17 14:04 97.4 F L 60 18 143/87 95 Intake and Output 09/09/16 09/10/16 09/10/16 23:59 07:59 15:59 Intake Total 1120 / 1120 805 / 805 645 / 645 Output Total 940 / 940 190 / 190 Balance 180 / 180 615 / 615 645 / 645 Intake: IV Fluids 1000 / 1000 805 / 805 395 / 395 0.9 % Sodium Chloride 1, 1000 / 1000 705 / 705 295 / 295 000 ML @ 75 mls/hr IVC . [id number] [facility] Rx#: [id number] Zosyn 3.375 GM In 100 / 100 100 / 100 Dextrose 5% (Minibag+) 100 ML 100 ML @ 25 mls/hr IVPB Q8H [facility] Rx#: [id number] Oral 120 / 120 0 / 0 250 / 250 Output: Urine 700 / 700 0 / 0 Stool 150 / 150 150 / 150 Wound Drainage 90 / 90 40 / 40 Left Upper Abdomen 90 / 90 40 / 40 Other: Meal Lunch Percent of Meal Consumed 75% Stool Consistency liquid Stool Characteristics [place] Stool Color Green Blood Glucose* 79 106 - VTE Documentation of Mechanical Device: Intermittent pneumatic compression device Consult Discharge Plan - Plan Referrals: Koby Hubbard DO [Primary Care Provider] -
[2016-09-10] MEDS ORDERED: Ondansetron ODT 4 MG TAB.RAPDIS SL PRN (14:01)
[2016-09-10] MEDS: metroNIDAZOLE 500 MG TABLET PO SCH ×2 (14:52→21:22)
[2016-09-10] MEDS: Gabapentin 400 MG CAPSULE PO SCH ×2 (14:52→21:22)
[2016-09-11] MEDS: *HR* Heparin 5,000 UNIT/ML VIAL SQ SCH (05:34)
[2016-09-11] MEDS: *HR* OxyCODONE/APAP 5/325 TABLET PO PRN ×2 (05:36→09:07)
[2016-09-11 06:15] LABS: Basophils % 0.7 %; Eosinophils # 0.2 K/mcL (0.0-0.6); Eosinophils % 4.7 %; Hematocrit 29.1 % (35.3-44.9); Hemoglobin 9.6 g/dL (11.5-15.4); Immature Granulocytes % 3.1 % (0-4); Lymphocytes # 0.8 K/mcL (0.6-4.6); Lymphocytes % 19.6 %; Mean Corpuscular Hemoglobin 31.5 pg (28.0-33.3); Mean Corpuscular Volume 95.4 fL (83.0-100.0); Mean Platelet Volume 10.7 fL (9.4-12.4); Monocytes # 0.3 K/mcL (0.0-1.3); Monocytes % 7.8 %; Neutrophils # 2.7 K/mcL (1.6-8.9); Platelet Count 143 K/mcL (140-400); Red Blood Count 3.05 M/mcL (3.82-4.97); Red Cell Distribution Width 13.2 % (11.5-14.5); Segmented Neutrophils % 64.1 %
[2016-09-11 06:30] LABS: BUN/Creatinine Ratio 10 (6-26); Blood Urea Nitrogen 7 mg/dL (7-20); Carbon Dioxide 30 mEq/L (19-29); Chloride 107 mEq/L (98-109); Glucose 89 mg/dL (70-99); Osmolality,Calculated 295 (280-300); Potassium 3.1 mEq/L (3.5-4.5); Sodium 144 mEq/L (136-145); eGFR For African Americans > 60 (> 60); eGFR For Non-African Americans > 60 (> 60)
[2016-09-11 07:46] VITALS: BP 129/73
--- NOTE | 2016-09-11 07:47 | Discharge Summary ---
<Bela Saha - Last Filed: 09/11/16 07:39> Date of Encounter: 09/11/16 Time of Encounter: 11:00 - Discharge Diagnosis (1) Colonic stricture Priority: Primary Status: Acute (2) Essential hypertension Priority: Secondary Status: Chronic (3) Morbid obesity with BMI of 45.0-49.9, adult Priority: Secondary Status: Chronic (4) DVT prophylaxis Priority: Secondary Status: Acute (5) Hypokalemia Priority: Secondary Status: Resolved (6) CKD (chronic kidney disease), stage II Priority: Secondary Status: Chronic (7) Hypomagnesemia Priority: Secondary Status: Resolved (8) Acute confusion Priority: Secondary Status: Resolved - Discharge Medications Prescriptions: OxyCODONE/APAP 5/325 [Percocet 5/325 MG] 1 each PO Q4HR PRN #30 tablet PRN Reason: Pain Ciprofloxacin [Cipro] 500 mg PO BID #8 tablet MetroNIDAZOLE [Flagyl] 500 mg PO TID #12 tablet Psyllium Husk/Aspartame [Metamucil Sugar-Free Powder] 283 gm PO BID 30 Days Home Medications: Gabapentin [Neurontin] 800 mg PO TID #90 tablet 04/18/16 [Rx] Levothyroxine [Synthroid] 50 mcg PO DAILY 07/23/16 [History] Aspirin [Lo-Dose Aspirin EC] 81 mg PO DAILY 08/29/16 [History] Tamoxifen [Nolvadex] 10 mg PO DAILY 08/29/16 [History] Turmeric Root Extract [Turmeric] 500 mg PO BID 08/29/16 [History] Calcium Carbonate/Vitamin D3 [Calcium 500-Vit D3 400 Tablet] 1 tab PO BID [History] Calcium Carbonate/Vitamin D3 [Calcium 600-Vit D3 400 Tablet] 1 each PO BID #180 tablet 09/10/16 [Rx] Ciprofloxacin [Cipro] 500 mg PO BID #8 tablet 09/11/16 [Rx] MetroNIDAZOLE [Flagyl] 500 mg PO TID #12 tablet 09/11/16 [Rx] OxyCODONE/APAP 5/325 [Percocet 5/325 MG] 1 each PO Q4HR PRN #30 tablet 09/11/16 [Rx] Psyllium Husk/Aspartame [Metamucil Sugar-Free Powder] 283 gm PO BID 30 Days 06/29 [Rx] Allergies/Adverse Reactions: Allergies latex Adverse Reaction (Verified 08/29/16 08:12) See Comments Tested Negative General Surgery Exam Initial Vital Signs Temp Pulse Resp BP Pulse Ox 98.0 F 66 18 134/92 98 09/04/16 11:29 09/04/16 11:29 09/04/16 11:29 09/04/16 11:29 09/04/16 11:29 - General physical appearance well developed, well nourished, no distress, no pain, obese - Eyes PERRL, normal ocular movement - ENT normal mucosa, atraumatic, normocephalic - Neck trachea midline - Respiratory normal expansion, clear to auscultation - Cardiovascular Cardiovascular exam: Present: RRR, no murmurs/rubs/gallops - Abdomen Abdomen general surgery: Present: bowel sounds present, soft, tender ( appropriate post op tenderness) - Incision Incision: Present: clean and dry, intact (packed at three sites with serous drainage) - Integumentary Integumentary general surgery: Present: warm and dry, no abnormal pigmentation. Absent: diaphoresis - Neurologic Present: CN 2-12 grossly intact - Musculoskeletal Present: normal gait, normal posture - Psychiatric Psychiatric general surgery: Present: A&Ox3, speech is normal Date of admission: 09/04/16 10:16 Primary care physician: Koby Hubbard, Consults: 09/04/16 15:36 Consult to Invasive Line Access Team [CONS] Routine Reason for Consult: Picc Line Insertion Line Type: EPIV 09/05/16 03:29 Consult to Wound Care [CONS] Routine Reason for Consult: (previous colostomy) now with diverting loop ileostomy Time Notified: 22:06 Call Completed: No 09/07/16 08:53 Consult to Occupational Therapy [CONS] Routine Comment: Evaluate, develop and implement POC Consult to Physical Therapy [CONS] Routine Comment: Evaluate, develop and implement POC 09/10/16 08:24 Consult to Glove Operator [CONS] Routine Reason for SW Consult: PT recommending swing/rehab; has a new ileostomy Discharging clinician: Bela Saha Anticipated date of discharge: 09/11/16 - Patient Status Disposition: Home Health Service Condition: Good Overall status at discharge: patient is progressing back to baseline - Discharge Instructions Follow Up With: Koby Hubbard DO [Primary Care Provider] - Bela Saha MD [Partnered Physician] - 09/19/16 11:05 am Additional Instructions: no lifting more than 20 lbs for 6 weeks. ok to shower, no tub baths or pools no driving ok to ride in car wearing seat belt wound care: wash area with soap and water daily pack three areas of midline wound with 1/4" plain packing daily, cover with 4x4 gauze and medipore tape, change daily GOVIND drain: wash site with soap and water daily and apply drain sponge to site, secure with tape, change daily keep running 24 hr log of output and bring to follow up, record color of drainage as well Ostomy care: empty bag and wash out twice daily and as needed. Change appliance every 5-7 days and as needed if leaking - Diet and Activity Activity: increase activity as tolerated Diet: advance to your usual diet - Hospital Course Hospital course: Ms. Biswas is a 55 year old female who was found to have a colorectal stricture at a previous anastomosis site. She had previously had a Estrada/reversal for perforated diverticulitis. Patient underwent a resection of colorectal anastomosis with reanastomosis (colorectal), lysis of adhesions for 2 hrs, small bowel resection, bilateral salpingectomy, primary repair ventral incisional hernia x2 and diverting loop ileostomy on 09/05/16. Postoperatively she had confusion for several days which was likely narcotic related. CT head was negative for acute stroke. Once she had return of bowel function she was started on clears and advanced diet. Pain control was initially iv medication and switched to po meds. She was maintained on her iv synthroid for her hypothryroidism and started on her home meds once tolerating diet. She was up ambulating well and having appropriate bowel function. Her midline wound is packed at three placed with 1/4" plain packing and changed daily. She was seen by PT/OT while having her acute confusion and at that time they recommended inpatient rehab which patient refused and really doesnt need. - Time Spent with Patient Total time spent providing and/or coordinating discharge services: Labs on day of discharge: Labs from last 24 hours 09/11/16 09/11/16 09/10/16 05:19 05:19 16:58 WBC 4.2 L RBC 3.05 L Hgb 9.6 L Hct 29.1 L MCV 95.4 MCH 31.5 MCHC 33.0 RDW 13.2 Plt Count 143 MPV 10.7 Immature Gran % 3.1 Seg Neutrophils % 64.1 Lymphocytes % 19.6 Monocytes % 7.8 Eosinophils % 4.7 Basophils % 0.7 Neutrophils # 2.7 Lymphocytes # 0.8 Monocytes # 0.3 Eosinophils # 0.2 Basophils # 0.0 Sodium 144 Potassium 3.1 L Chloride 107 Carbon Dioxide 30 H BUN 7 Creatinine 0.72 Est GFR ( Amer) > 60 Est GFR (Non-Af Amer) > 60 BUN/Creatinine Ratio 10 Glucose 89 POC Glucose 100 H Calculated Osmolality 295 Calcium 8.0 L 09/10/16 09/10/16 12:37 05:40 WBC RBC Hgb Hct MCV MCH MCHC RDW Plt Count MPV Immature Gran % Seg Neutrophils % Lymphocytes % Monocytes % Eosinophils % Basophils % Neutrophils # Lymphocytes # Monocytes # Eosinophils # Basophils # Sodium Potassium Chloride Carbon Dioxide BUN Creatinine Est GFR ( Amer) Est GFR (Non-Af Amer) BUN/Creatinine Ratio Glucose POC Glucose 106 H 79 Calculated Osmolality Calcium - Impressions ITS Impressions Head CT 09/06/16 13:30 IMPRESSION: No acute intracranial abnormality. D/ / Gianna Pardo MD / Gianna Pardo MD Interpreting Provider: Gianna Pardo MD <Hawa Brewer - Last Filed: 09/11/16 10:07> Date of Encounter: 09/11/16 - Discharge Diagnosis (1) Colonic stricture Status: Acute (2) Essential hypertension Status: Chronic (3) Hyperglycemia Status: Acute (4) CKD (chronic kidney disease), stage II Status: Chronic (5) Morbid obesity with BMI of 45.0-49.9, adult Status: Chronic (6) Hypomagnesemia Status: Resolved (7) Acute confusion Status: Resolved (8) DVT prophylaxis Status: Acute General Surgery Exam Initial Vital Signs Temp Pulse Resp BP Pulse Ox 98.0 F 66 18 134/92 98 09/04/16 11:29 09/04/16 11:29 09/04/16 11:29 09/04/16 11:29 09/04/16 11:29 Date of admission: 09/04/16 10:16 Primary care physician: Koby Hubbard, Consults: 09/04/16 15:36 Consult to Invasive Line Access Team [CONS] Routine Reason for Consult: Picc Line Insertion Line Type: EPIV 09/05/16 03:29 Consult to Wound Care [CONS] Routine Reason for Consult: (previous colostomy) now with diverting loop ileostomy Time Notified: 22:06 Call Completed: No 09/07/16 08:53 Consult to Occupational Therapy [CONS] Routine Comment: Evaluate, develop and implement POC Consult to Physical Therapy [CONS] Routine Comment: Evaluate, develop and implement POC 09/10/16 08:24 Consult to Glove Operator [CONS] Routine Reason for SW Consult: PT recommending swing/rehab; has a new ileostomy - Patient Status Functional capacity at discharge: independent ambulation Overall status at discharge: patient is progressing back to baseline - Hospital Course Hospital course: Ms. Biswas is a 55 year old female - Time Spent with Patient Total time spent providing and/or coordinating discharge services: Greater than 30 minutes Labs on day of discharge: Labs from last 24 hours 09/11/16 09/11/16 09/10/16 05:19 05:19 16:58 WBC 4.2 L RBC 3.05 L Hgb 9.6 L Hct 29.1 L MCV 95.4 MCH 31.5 MCHC 33.0 RDW 13.2 Plt Count 143 MPV 10.7 Immature Gran % 3.1 Seg Neutrophils % 64.1 Lymphocytes % 19.6 Monocytes % 7.8 Eosinophils % 4.7 Basophils % 0.7 Neutrophils # 2.7 Lymphocytes # 0.8 Monocytes # 0.3 Eosinophils # 0.2 Basophils # 0.0 Sodium 144 Potassium 3.1 L Chloride 107 Carbon Dioxide 30 H BUN 7 Creatinine 0.72 Est GFR ( Amer) > 60 Est GFR (Non-Af Amer) > 60 BUN/Creatinine Ratio 10 Glucose 89 POC Glucose 100 H Calculated Osmolality 295 Calcium 8.0 L 09/10/16 12:37 WBC RBC Hgb Hct MCV MCH MCHC RDW Plt Count MPV Immature Gran % Seg Neutrophils % Lymphocytes % Monocytes % Eosinophils % Basophils % Neutrophils # Lymphocytes # Monocytes # Eosinophils # Basophils # Sodium Potassium Chloride Carbon Dioxide BUN Creatinine Est GFR ( Amer) Est GFR (Non-Af Amer) BUN/Creatinine Ratio Glucose POC Glucose 106 H Calculated Osmolality Calcium - Impressions ITS Impressions Head CT 09/06/16 13:30 IMPRESSION: No acute intracranial abnormality. D/ / Gianna Pardo MD / Gianan Pardo MD Interpreting Provider: Gianna Pardo MD - Attending Attestation I examined this patient and my medical decision-making was reviewed with the TRANSPORTATION ASSOCIATE/PA/Advanced Practice Nurse/Resident Physician. I agree with the documented findings, disposition and treatment plan as described except to the extent set forth below.
[2016-09-11] MEDS: Gabapentin 400 MG CAPSULE PO SCH (08:43)
[2016-09-11] MEDS: metroNIDAZOLE 500 MG TABLET PO SCH (08:44)
--- NOTE | 2016-09-11 10:17 | Physician Discharge Referral ---
Home Health/Hosp Referral Info Transfer to: Home Health Attending Provider: Dr. Bela Saha Provider in Charge Post Discharge: Other (Dr. Bela Saha and PCP) - Diagnosis (1) Colonic stricture Priority: Primary Status: Resolved (2) Essential hypertension Priority: Secondary Status: Chronic (3) Hyperglycemia Priority: Secondary Status: Acute (4) CKD (chronic kidney disease), stage II Priority: Secondary Status: Chronic (5) Morbid obesity with BMI of 45.0-49.9, adult Priority: Secondary Status: Chronic (6) Hypomagnesemia Status: Resolved (7) Acute confusion Priority: Secondary Status: Resolved - Respiratory Orders None - Dressing/Wound Care Site: #1 Midline packing #2 GOVIND drain #3 Ileostomy Type of Dressing/Treatments w/Frequency: #1 wound care: wash area with soap and water daily pack three areas of midline wound with 1/4" plain packing daily, cover with 4x4 gauze and medipore tape, change daily #2 GOVIND drain: wash site with soap and water daily and apply drain sponge to site , secure with tape, change daily keep running 24 hr log of output and bring to follow up, record color of drainage as well #3 Ostomy care: empty bag and wash out twice daily and as needed. Change appliance every 5-7 days and as needed if leaking - Diet/Nutrition Diet/Nutrition Orders: Regular - Activity Activity Orders: Up ad marc, Ambulate - Services Needed Following services are medically necessary services: [facility] Care Orders: wound care: wash area with soap and water daily pack three areas of midline wound with 1/4" plain packing daily, cover with 4x4 gauze and medipore tape, change daily GOVIND drain: wash site with soap and water daily and apply drain sponge to site, secure with tape, change daily keep running 24 hr log of output and bring to follow up, record color of drainage as well Ostomy care: empty bag and wash out twice daily and as needed. Change appliance every 5-7 days and as needed if leaking - Transfer Medications Prescriptions: OxyCODONE/APAP 5/325 [Percocet 5/325 MG] 1 each PO Q4HR PRN #30 tablet PRN Reason: Pain Ciprofloxacin [Cipro] 500 mg PO BID #8 tablet MetroNIDAZOLE [Flagyl] 500 mg PO TID #12 tablet Psyllium Husk/Aspartame [Metamucil Sugar-Free Powder] 1 unit PO BID PRN 30 Days PRN Reason: Diarrhea Home Medications: Gabapentin [Neurontin] 800 mg PO TID #90 tablet 04/18/16 [Rx] Levothyroxine [Synthroid] 50 mcg PO DAILY 07/23/16 [History] Aspirin [Lo-Dose Aspirin EC] 81 mg PO DAILY 08/29/16 [History] Tamoxifen [Nolvadex] 10 mg PO DAILY 08/29/16 [History] Turmeric Root Extract [Turmeric] 500 mg PO BID 08/29/16 [History] Calcium Carbonate/Vitamin D3 [Calcium 500-Vit D3 400 Tablet] 1 tab PO BID [History] Calcium Carbonate/Vitamin D3 [Calcium 600-Vit D3 400 Tablet] 1 each PO BID #180 tablet 09/10/16 [Rx] Ciprofloxacin [Cipro] 500 mg PO BID #8 tablet 09/11/16 [Rx] MetroNIDAZOLE [Flagyl] 500 mg PO TID #12 tablet 09/11/16 [Rx] OxyCODONE/APAP 5/325 [Percocet 5/325 MG] 1 each PO Q4HR PRN #30 tablet 09/11/16 [Rx] Psyllium Husk/Aspartame [Metamucil Sugar-Free Powder] 1 unit PO BID PRN 30 Days 09/11/16 [Rx] Allergies/Adverse Reactions: Allergies latex Adverse Reaction (Verified 08/29/16 08:12) See Comments Tested Negative Certification: Further, I certify that my clinical findings support that this patient is homebound (i.e. absences from home require considerable and taxing effort and are for medical reasons or bahai services or infrequently or short duration when for other reasons) because: Homebound Reason: Patient requires assistance of a person or device to safely leave home, Leaving home requires considerable and taxing effort due to condition Attestation: My signature below is to certify that this patient is under my care and that I, or nurse practitioner, or a physician's pediatric medical assistant working with me, has a face-to -face encounter with this patient.
== END 2016-09-11 12:18 | disposition home health service (06) | DRG 330 ==
LOC: SAMDAY 09:17 → 3ANU 10:16
PROVIDERS: ADMIT Surgery; ATTEND Surgery